=== PATIENT | male | born 1995 | race Caucasian/White ===

== ENCOUNTER 2022-12-30 19:08 | Inpatient (IN) | payer OTHER, SELFPAY ==
[2022-12-30 19:12] VITALS: BMI 28.9
--- NOTE | 2022-12-30 22:27 | PC.ADMIT ---
pt is a 27 year old male who is transgender (goes by they/them) who presented to [facility] ED with SI. pt has a PMH of inpatient hospitalizations, plantar faciitis, alopecia, titanium head piece, TBI, spinal injuries, mixed urinary incontinence, and a history of the foster system. during admission, pt was pleasant and signed all legals. pt says he uses his sensory toys to cope and he carries in his belongings. pt also has a leg brace at night for their plantar faciitits. pt also requested to wear his hat due to his alopecia and titanium plate. start treatment plan and promote safety.
[2022-12-30 23:20] VITALS: BP 134/75; PULSE 88; TEMP 36.4; O2SAT 99
[2022-12-31 08:25] VITALS: BP 129/83; PULSE 71; RESP 18; TEMP 36.1; O2SAT 99
[2022-12-31 08:57] LABS: Estimated Average Glucose 103 mg/dL; Hemoglobin A1c % 5.2 %
[2022-12-31 09:23] LABS: Alanine Aminotransferase 15 U/L (0-40); Alkaline Phosphatase 57 U/L (39-117); Anion Gap 11 (12-20); Aspartate Amino Transferase 16 U/L (5-37); Bilirubin Total 0.5 mg/dL (0.0-1.0); Blood Urea Nitrogen 10 mg/dL (9-16); Calcium 9.3 mg/dL (8.4-10.2); Carbon Dioxide 27 mmol/L (22-29); Chloride 106 mmol/L (96-108); Cholesterol 170 mg/dL; Creatinine Clr Calc Pharmacy 92.4; Estimated Glomerular Filt Rate > 60; Glucose Fasting 101 mg/dL (60-99); HDL Cholesterol 35 mg/dL; LDL Cholesterol Calculated 108 mg/dl; Potassium 4.2 mmol/L (3.3-5.1); Sodium 140 mmol/L (135-145); Total Protein 6.8 g/dL (6.5-8.0); Triglycerides 138 mg/dL
[2022-12-31 09:41] LABS: Thyroid Stimulating Hormone 1.24 uIU/mL (0.32-4.0)
[2022-12-31 09:47] LABS: Vitamin B12 495 pg/mL (200-900)
--- NOTE | 2022-12-31 10:19 | P.HPPS_ITS ---
HPI Date of Service: 12/31/22 Chief Complaint: SI Sources of Information: patient interviewed, chart reviewed and crisis/core team assessment reviewed HPI Subjective Notes: Domínguez Warning and Conditional Voluntary Narrative: Patient is a 27-year-old trans female with history of PTSD, depression, anorexia/bulimia, TBI (s/p titanium plate since 4 years old), alopecia who presents for dysregulated mood and unsafe thoughts, urges to self-harm in the face of relational strife. Patient said that overall she has been doing okay. Last week however she lost her therapist after 8 years since her therapist was not comfortable dealing with people or trans. Around the same time her partner was unable to fill prescription and decompensated into a manic episode; patient needed to call 911 which resulted in partners psychiatric admission and now her partner is angry at her. Patient reports she started having some suicidal thoughts, did not feel stable and urges to self-harm (from which she refrained) so she called [facility] and came to the emergency room. Patient says that now she is feeling back to her regular self and all SI(which she says was only passive) and self-harming urges have fully resolved. Patient has remained on current medic ation regimen which she says has been carefully crafted with her outpatient psychiatrist. Patient says she like to be on the unit and would benefit from groups however she does not think she needs to be on a locked unit and has strong support in the community. Patient denies drug or alcohol abuse other than cannabis; denies any history of manic type episodes; reports history of AH but only of background murmurs and only when she is stressed out. Ongoing PTSD symptoms Past Psychiatric History: Numerous psychiatric admissions; last 1 about 3 or 4 years ago Patient has outpatient psychiatrist with whom she has a good rapport Just quit her therapist after 8 years Patient has schizoaffective disorder listed in history; patient says that this was a misnomer Patient wears a baseball-style hat at all times including during sleep due to alopecia and scar down the center of her head; reports she has worn a hat daily and at all times since childhood Medical Evaluation Reviewed: Hospitalist Stella Pending [facility] Medical History (Updated 12/31/22 @ 15:32 by Ruslan Prajapati MD) Chronic pain of right knee Depression with anxiety Gender dysphoria GERD (gastroesophageal reflux disease) Plantar fasciitis of left foot PTSD (post-traumatic stress disorder) TBI (traumatic brain injury) Transgender person on hormone therapy Family History: Unclear Social History: Lives with partner Biological mother Patient close with foster mother Substance History: Cannabis Trauma History: Patient reports extensive but details were not discussed; patient grew up in foster care Diagnostics Vital Signs (24Hr): Vital Signs - 24 hr 12/30/22 23:20 12/31/22 08:25 Temperature 97.5 F 96.9 F Pulse Rate 88 71 Respiratory Rate 18 Blood Pressure 134/75 129/83 Pulse Oximetry 99 99 Oxygen Delivery Method Room Air Room Air BMI result Body Mass Index 28.9 Labs 12/31/22 08:01 Labs: Laboratory Results - last 48 hr 12/31/22 12/31/22 12/31/22 08:01 08:01 08:01 Sodium 140 Potassium 4.2 Chloride 106 Carbon Dioxide 27 Anion Gap 11 L BUN 10 Creatinine 1.26 Estim Creat Clear Calc 92.4 Estimated GFR > 60 Fasting Glucose 101 H Estimat Average Glucose 103 Hemoglobin A1c % 5.2 Calcium 9.3 Total Bilirubin 0.5 AST 16 ALT 15 Alkaline Phosphatase 57 Total Protein 6.8 Albumin 4.0 Triglycerides 138 Cholesterol 170 LDL Cholesterol, Calc 108 HDL Cholesterol 35 Vitamin B12 495 Folate 9.0 TSH 1.24 Meds/Allergies Meds Home Medications Medication Instructions Recorded Confirmed Type acetaminophen 500 mg tablet 500 mg PO Q6H PRN headache 12/30/22 12/30/22 History desmopressin 0.2 mg tablet 0.6 mg PO BEDTIME 12/30/22 12/30/22 History diphenhydramine HCl 12.5 mg/5 mL 12.5 mg PO BEDTIME 12/30/22 12/30/22 History oral elixir docusate sodium 100 mg capsule 100 mg PO BID 12/30/22 12/30/22 History (DOK) docusate sodium 100 mg capsule 100 mg PO BID 12/30/22 12/30/22 History (DOK) estradiol 1 mg tablet 2 mg PO BID 12/30/22 12/30/22 History gabapentin 100 mg capsule 100 mg PO BID 12/30/22 12/30/22 History gabapentin 400 mg capsule 400 mg PO BEDTIME 12/30/22 12/30/22 History ibuprofen 600 mg tablet 600 mg PO Q6H PRN leg and headache 12/30/22 12/30/22 Hi story lorazepam 1 mg tablet 1 mg PO BID PRN Anxiety 12/30/22 12/30/22 History melatonin 5 mg tablet 5 mg PO BEDTIME PRN Sleep 12/30/22 12/30/22 History multivitamin 1 tab PO DAILY 12/30/22 12/31/22 History oxybutynin chloride 5 mg 5 mg PO DAILY 12/30/22 12/30/22 History tablet,extended release 24 hr pantoprazole 40 mg tablet,delayed 40 mg PO DAILY 12/30/22 12/30/22 History release perphenazine 16 mg tablet 16 mg PO BID 12/30/22 12/30/22 History spironolactone 50 mg tablet 50 mg PO BID 12/30/22 12/30/22 History Allergies Allergies Allergy/AdvReac Type Severity Reaction Status Date / Time aripiprazole [From Abilify] Allergy Severe Unknown Verified 12/30/22 19:21 crab Allergy Severe Anaphylaxis Verified 12/30/22 19:21 haloperidol [From Haldol] Allergy Severe Unknown Verified 12/30/22 19:21 paliperidone [From Invega] Allergy Severe Unknown Verified 12/30/22 19:21 almond Allergy Intermediate Rash Verified 12/30/22 19:21 prazosin Allergy Intermediate Rash Verified 12/30/22 19:21 walnut Allergy Intermediate Rash Verified 12/30/22 19:21 Mental Status Exam Mental Status Exam Narrative: Pt is alert and oriented; behavior is cooperative, friendly and calm; patient is not in distress; dressed in casual attire with unkempt hair and perez, wearing a hat; mood is described as ok and affect congruent; eye contact appropriate; Speech is normal rate, volume and prosody and not pressured; no psychomotor agitation/retardation present; thought process is organized and goal directed; Thought content is on tx; otherwise pertinent to relevant topics and without any delusional content, paranoid ideations or grandiosity; denies any SI/HI. There is no evidence of perceptual disturbance. Patients insight and judgment appear intact. Assessment & Plan Assessment & Plan (1) Adjustment disorder with disturbance of emotion: Status: Acute Code(s): F43.29 - Adjustment disorder with other symptoms (2) PTSD (post-traumatic stress disorder): Status: Acute Code(s): F43.10 - Post-traumatic stress disorder, unspecified (3) Gender dysphoria: Status: Acute Code(s): F64.9 - Gender identity disorder, unspecified (4) TBI (traumatic brain injury): Status: Acute Code(s): S06.9XAA - Unspecified intracranial injury with loss of consciousness status unknown, initial encounter Plan Patient is a 27-year-old trans female with history of PTSD, depression, anorexia/bulimia, TBI (s/p titanium plate since 4 years old), alopecia who presents for dysregulated mood and unsafe thoughts, urges to self-harm in the face of relational strife. Patient said that overall she has been doing okay. Last week however she lost her therapist after 8 years since her therapist was n ot comfortable dealing with people or trans. Around the same time her partner was unable to fill prescription and decompensated into a manic episode; patient needed to call 911 which resulted in partners psychiatric admission and now her partner is angry at her. Patient reports she started having some suicidal thoughts, did not feel stable and urges to self-harm (from which she refrained) so she called [facility] and came to the emergency room. Patient says that now she is feeling back to her regular self and all SI(which she says was only passive) and self-harming urges have fully resolved. Patient has remained on current medication regimen which she says has been carefully crafted with her outpatient psychiatrist. Patient says she like to be on the unit and would benefit from groups however she does not think she needs to be on a locked unit and has strong support in the community. Patient denies drug or alcohol abuse other than cannabis; denies any history of manic type episodes; reports history of AH but only of background murmurs and only when she is stressed out. Ongoing PTSD symptoms -Patient wears a baseball-style hat at all times including during sleep due to alopecia and scar down the center of her head; reports she has worn a hat daily and at all times since childhood. They are currently exist a no hat policy on the unit. Patient says that while she would benefit from groups, if she was not allowed to wear hat she would stay in her room all the time until discharge (patient has already put in a 3 day notice). She said this is not a protest but that she has not been in public, in the presence of other people without a had on for her entire life and just the thought of it is making her tremble. She says she would prefer to discharge now if possible. Patient maintains that she is without any SI at all and all self harming urges have dissipated. She feels safe and stable for discharge. Impression/plan: Patient presents with adjustment disorder in the face of psychosocial stressors; all symptoms have fully resolved and patient is back to baseline. She has good support in the community with her psychiatrist with whom she has a good rapport. She returns to her own home. Patient has not been hospitalized for 3-4 years and despite feeling dysregulated these past few days, did not self-harm at all but instead reached out for help. While patient may benefit from being on the unit, she is not in imminent risk for harm to self or others. She has placed a 3 day notice and would like to discharge if she is not allowed to wear hat on the unit, feeling she will be much too anxious and self-conscious to focus on any groups. [employer] Sergeant social worker health services both agree that patient is safe for discharge. -otherwise continue home medication regimen Patient educated on: diagnosis, medication risk/benefits and therapeutic strategies Informed Consent: understands Reason for continued inpatient stay Substantial Risk for: stable for discharge Statement Statement: I have reviewed the history and physical and performed a pertinent examination on my patient. No changes have occurred unless specified. If the History and Physical was not performed prior to admission, the Hospitalist's service will be consulted for completing the admission physical. Time Spent With Patient Time: Total time managing care of this patient today ____ minutes.
--- NOTE | 2022-12-31 12:08 | P.CONHOSP_ITS ---
History of Present Illness Data of Consult Service Date: 12/31/22 Requesting physician: Ruslan Prajapati Primary Care Provider: Unknown Physician HPI Reason for consult: medical management 27 year old assigned male at transitioning from male to female on estradiol and spironolactone with history of TBI, cranial surgery as a child due to suture fusion, history disordered eating, chronic right knee pain with meniscal tear, plantar fasciitis left foot, mixed urinary incontinence, GERD, VCÍTOR/depression, PTSD, and alopecia admitted to psychiatry from [facility] with consult placed to hospitalist service for medical H&P. The patient reports history multiple TBI and as a result has short term memory loss and occassional headaches. Pt states uses brace for the plantar fasciitis but is unsure if the unit allows for this. Also reports always wearing a hat due to insecurities surr ounding the alopecia. Regular MJ user, no illicit substances. No etoh use or cigarettes. Review of Systems Review of Systems: General: No fevers, malaise, unintentional weight loss HEENT: No blurred vision, diplopia. No sore throat, nasal congestion, rhinorrhea, sinus pain, ear pain Cardiovascular: No chest pain, palpitations, or leg edema Respiratory: No shortness of breath, wheezing, cough GI: No abdominal pain, nausea, vomiting, diarrhea, constipation, melena, hematochezia : +urinary incontinence. No dysuria, hematuria, increased urinary frequency, decreased urinary output MSK: No myalgia, back pain. +right knee pain, +left foot pain Neuro: +memory impairment. No headaches, weakness, paresthesias Skin: No rashes or lesions [facility] Medical History Chronic pain of right knee Depression with anxiety GERD (gastroesophageal reflux disease) Plantar fasciitis of left foot PTSD (post-traumatic stress disorder) Transgender person on hormone therapy Social History Household Members: Significant Other Housing: Apartment Do you presently have visiting nurse or other home services: No Patient Tobacco Use Status: Never used Tobacco Use of substances other than those prescribed or required for medical reasons: Yes Substance Use Type: Marijuana Substance Use Frequency: Occasionally Last Used Substance: Just Prior to Admission Currently Displaying Signs/Symptoms of Drug Intoxication Withdrawal: No Any prior treatment program specific to substance use: No Have you been hit, kicked, punched, or otherwise hurt by someone within the past year? If so, by whom?: No Do you feel safe in your current relationship?: Yes Is there a partner from a previous relationship who is making you feel unsafe now?: No Are you made to feel afraid or neglected: No Advance Directives: No Advance Directives Information Provided: Yes Do you have thoughts of harming others: None Do you have a plan to hurt others: No Plan Recently lost weight without trying: No How much weight loss: Not applicable Eating poorly because of decreased appetite: Yes Nutrition screen score: 1 Nutrition Risks: No Nutritional Risk and Dental problems Poor oral hygiene: No Meds Allergies Allergy/AdvReac Type Severity Reaction Status Date / Time aripiprazole [From Abilify] Allergy Severe Unknown Verified 12/30/22 19:21 crab Allergy Severe Anaphylaxis Verified 12/30/22 19:21 haloperidol [From Haldol] Allergy Severe Unknown Verified 12/30/22 19:21 paliperidone [From Invega] Allergy Severe Unknown Verified 12/30/22 19:21 almond Allergy Intermediate Rash Verified 12/30/22 19:21 prazosin Allergy Intermediate Rash Verified 12/30/22 19:21 walnut Allergy Intermediate Rash Verified 12/30/22 19:21 Active Medications: Current Medications Acetaminophen (Acetaminophen 325 Mg Tablet) 650 mg PO Q6H PRN PRN Reason: Headache/Pain Mild Scale (1-3) Al Hydroxide/Mg Hydroxide (Magnesium Hydrox/Alum Hydrox 30 Ml Oral.Susp) 30 ml PO Q6H PRN PRN Reason: Heartburn/Nausea Desmopressin Acetate (Desmopressin Acetate 0.2 Mg Tablet) 0.6 mg PO BEDTIME DANNI Diphenhydramine HCl (Diphenhydramine Hcl 12.5 Mg/5 Ml Liquid) 12.5 mg PO BEDTIME DANNI Docusate Sodium (Docusate Sodium 100 Mg Capsule) 100 mg PO BID PRN PRN Reason: constipation Estradiol (Estradiol 0.5 Mg Tablet) 2 mg PO BID DANNI Gabapentin (Gabapentin 400 Mg Capsule) 400 mg PO BEDTIME DANNI Gabapentin (Gabapentin 100 Mg Capsule) 100 mg PO BID DANNI Hydroxyzine HCl (Hydroxyzine Hcl 25 Mg Tablet) 25 mg PO Q6H PRN PRN Reason: Anxiety Ibuprofen (Ibuprofen 600 Mg Tablet) 600 mg PO Q6H PRN PRN Reason: leg and headache Lorazepam (Lorazepam 1 Mg Tablet) 1 mg PO BID PRN PRN Reason: Anxiety Magnesium Hydroxide (Milk Of Magnesia 30 Ml Oral.Susp) 30 ml PO DAILY PRN PRN Reason: Constipation Melatonin (Melatonin 3 Mg Tablet) 6 mg PO BEDTIME PRN PRN Reason: Sleep Nicotine (Nicotine 14 Mg Patch.Td24) 14 mg TRANSDERMA DAILY PRN PRN Reason: nicotine craving Omeprazole (Omeprazole 20 Mg Capsule.Dr) 20 mg PO DAILY@0630 DANNI Oxybutynin Chloride (Oxybutynin Chloride Er 5 Mg Tab.Er.24) 5 mg PO DAILY DANNI Perphenazine (Perphenazine 8 Mg Tablet) 16 mg PO BID DANNI Spironolactone (Spironolactone 25 Mg Tablet) 50 mg PO BID DANNI; Protocol Trazodone HCl (Trazodone Hcl 50 Mg Tablet) 50 mg PO BEDTIME PRN PRN Reason: Insomnia Home Medications Medication Instructions Recorded Confirmed Last Taken Type acetaminophen 500 mg tablet 500 mg PO Q6H PRN headache 12/30/22 12/30/22 Unknown History desmopressin 0.2 mg tablet 0.6 mg PO BEDTIME 12/30/22 12/30/22 Unknown History diphenhydramine HCl 12.5 mg/5 mL 12.5 mg PO BEDTIME 12/30/22 12/30/22 Unknown History oral elixir docusate sodium 100 mg capsule 100 mg PO BID 12/30/22 12/30/22 Unknown History (DOK) docusate sodium 100 mg capsule 100 mg PO BID 12/30/22 12/30/22 Unknown History (DOK) estradiol 1 mg tablet 2 mg PO BID 12/30/22 12/30/22 Unknown History gabapentin 100 mg capsule 100 mg PO BID 12/30/22 12/30/22 Unknown History gabapentin 400 mg capsule 400 mg PO BEDTIME 12/30/22 12/30/22 Unknown History ibuprofen 600 mg tablet 600 mg PO Q6H PRN leg and headache 12/30/22 12/30/22 Unknown History lorazepam 1 mg tablet 1 mg PO BID PRN Anxiety 12/30/22 12/30/22 Unknown History melatonin 5 mg tablet 5 mg PO BEDTIME PRN Sleep 12/30/22 12/30/22 Unknown History multivitamin 1 tab PO DAILY 12/30/22 12/31/22 Unknown History oxybutynin chloride 5 mg 5 mg PO DAILY 12/30/22 12/30/22 Unknown History tablet,extended release 24 hr pantoprazole 40 mg tablet,delayed 40 mg PO DAILY 12/30/22 12/30/22 Unknown History release perphenazine 16 mg tablet 16 mg PO BID 12/30/22 12/30/22 Unknown History spironolactone 50 mg tablet 50 mg PO BID 12/30/22 12/30/22 Unknown History Physical Exam Vital Signs and Narrative: Vital Signs: Last Vital Signs Temp 96.9 F 12/31/22 08:25 Pulse 71 12/31/22 08:25 Resp 18 12/31/22 08:25 BP 129/83 12/31/22 08:25 Pulse Ox 99 12/31/22 08:25 O2 Del Method Room Air 12/31/22 08:25 BMI result Body Mass Index 28.9 Constitutional - Awake and Alert, No apparent distress Eyes - PERRLA, EOMI Cardiovascular - S1S2, RRR, No edema Respiratory - Normal lung expansion, Normal respiratory effort, No respiratory distress, CTA bilaterally Gastrointestinal - NT / ND; +BS; No rebound or guarding Extremities - no calf tenderness bilaterally, no swelling Musculoskeletal - Normal inspection, normal ROM Skin - Warm/Dry Neurological - Alert & oriented x3, CN II-XII in tact, 5/5 strength BUE and BLE Results Labs 12/31/22 08:01 Labs: Laboratory Results - last 24 hr 12/31/22 12/31/22 12/31/22 08:01 08:01 08:01 Anion Gap 11 L Estim Creat Clear Calc 92.4 Estimated GFR > 60 Fasting Glucose 101 H Estimat Average Glucose 103 Hemoglobin A1c % 5.2 Calcium 9.3 Total Bilirubin 0.5 AST 16 ALT 15 Alkaline Phosphatase 57 Total Protein 6.8 Albumin 4.0 Triglycerides 138 Cholesterol 170 LDL Cholesterol, Calc 108 HDL Cholesterol 35 Vitamin B12 495 Folate 9.0 TSH 1.24 Assessment and Plan (1) Routine medical exam: Status: Acute Plan 27 year old assigned male at transitioning from male to female on estradi ol and spironolactone with history of TBI, cranial surgery as a child due to suture fusion, history disordered eating, chronic right knee pain with meniscal tear, plantar fasciitis left foot, mixed urinary incontinence, GERD, VÍCTOR/depression, PTSD, and alopecia admitted to psychiatry from [facility] with consult placed to hospitalist service for medical H&P. #Mood disorder/ptsd -plan per psychiatry #Transgender female on hormone therapy -Continue estradiol and spironolactone -monitor blood pressures #Mixed urinary incontinence -continue oxybutynin/desmopressin #Plantar fasciitis left foot -pain management prn -if permitted, allow brace for arch/heel support -recommend supportive footwear #Chronic knee pain -tylenol, topical analgesics #GERD -continue ppi #Alopecia -hat wearing at discretion of psychiatry -continue spironolactone Thank you for allowing me to participate in this consult. Signing off at this time. Please do not hesitate to call for further questions. Time Spent With Patient Time: Total time managing care of this patient today ____ minutes.
[2022-12-31] MEDS: Gabapentin 100 MG CAPSULE PO (12:12)
[2022-12-31] MEDS: oxyBUTYnin chloride ER 5 MG TAB.ER.24 PO (12:13)
[2022-12-31] MEDS: Spironolactone 25 MG TABLET 50 MG PO (12:13)
[2022-12-31] MEDS: Perphenazine 8 MG TABLET 16 MG PO (12:14)
[2022-12-31] MEDS: LORazepam 1 MG TABLET PO (12:15)
[2022-12-31] MEDS: hydrOXYzine HCL 25 MG TABLET PO (14:46)
--- NOTE | 2022-12-31 16:26 | P.DS_ITS ---
DS: Providers Provider Date of Service: 12/31/22 Date of admission: 12/30/22 19:08 Date of discharge: 12/31/22 Primary care physician: Unknown Physician Attending physician on admission: Ruslan Prajapati Consults: 12/30/22 19:41 Consult to Hospitalist Routine Comment: Consulting Provider: Hospitalist Reason For Exam: medical H&P Attending physician on discharge: Ruslan Prajapati DS: Diagnosis Discharge Diagnosis (1) Adjustment disorder with disturbance of emotion: Status: Acute (2) PTSD (post-traumatic stress disorder): Status: Acute (3) Gender dysphoria: Status: Acute (4) TBI (traumatic brain injury): Status: Acute DS: Medications Discharge Medications Home Medications: Home Medications Medication Instructions Recorded Confirmed acetaminophen 500 mg tablet 500 mg PO Q6H PRN headache 12/30/22 12/30/22 desmopressin 0.2 mg tablet 0.6 mg PO BEDTIME 12/30/22 12/30/22 diphenhydramine HCl 12.5 mg/5 mL 12.5 mg PO BEDTIME 12/30/22 12/30/22 oral elixir estradiol 1 mg tablet 2 mg PO BID 12/30/22 12/30/22 gabapentin 100 mg capsule 100 mg PO BID 12/30/22 12/30/22 gabapentin 400 mg capsule 400 mg PO BEDTIME 12/30/22 12/30/22 ibuprofen 600 mg tablet 600 mg PO Q6H PRN leg and headache 12/30/22 12/30/22 lorazepam 1 mg tablet 1 mg PO BID PRN Anxiety 12/30/22 12/30/22 melatonin 5 mg tablet 5 mg PO BEDTIME PRN Sleep 12/30/22 12/30/22 oxybutynin chloride 5 mg 5 mg PO DAILY 12/30/22 12/30/22 tablet,extended release 24 hr pantoprazole 40 mg tablet,delayed 40 mg PO DAILY 12/30/22 12/30/22 release perphenazine 16 mg tablet 16 mg PO BID 12/30/22 12/30/22 spironolactone 50 mg tablet 50 mg PO BID 12/30/22 12/30/22 Previous Rx's Medication Instructions Recorded docusate sodium 100 mg capsule 100 mg PO BID PRN constipation #0 12/31/22 caps Mental Status Exam Mental Status Exam Narrative: Pt is alert and oriented; behavior is cooperative, friendly and calm; patient is not in distress; dressed in casual attire with unkempt hair and perez, wearing a hat; mood is described as ok and affect congruent; eye contact appropriate; Speech is normal rate, volume and prosody and not pressured; no psychomotor agitation/retardation present; thought process is organized and goal directed; Thought content is on tx; otherwise pertinent to relevant topics and without any delusional content, paranoid ideations or grandiosity; denies any SI/HI. There is no evidence of perceptual disturbance. Patients insight and judgment appear intact. Data Data Completed and Pending Completed studies during hospitalization [Text1]: 12/31/22 12/31/22 12/31/22 08:01 08:01 08:01 Sodium 140 Potassium 4.2 Chloride 106 Carbon Dioxide 27 Anion Gap 11 L BUN 10 Creatinine 1.26 Estim Creat Clear Calc 92.4 Estimated GFR > 60 Fasting Glucose 101 H Estimat Average Glucose 103 Hemoglobin A1c % 5.2 Calcium 9.3 Total Bilirubin 0.5 AST 16 ALT 15 Alkaline Phosphatase 57 Total Protein 6.8 Albumin 4.0 Triglycerides 138 Cholesterol 170 LDL Cholesterol, Calc 108 HDL Cholesterol 35 Vitamin B12 495 Folate 9.0 TSH 1.24 DS: Summary Hospital Course Hospital Course: Patient is a 27-year-old trans female with history of PTSD, depression, anorexia/bulimia, TBI (s/p titanium plate since 4 years old), alopecia who presents for dysregulated mood and unsafe thoughts, urges to self-harm in the face of relational strife.? Patient said that overall she has been doing okay.? Last week however she lost her therapist after 8 years since her therapist was not comfortable dealing with people or trans.? Around the same time her partner was unable to fill prescription and decompensated into a manic episode; patient needed to call 911 which resulted in partners psychiatric admission and now her partner is angry at her.? Patient reports she started having some suicidal thoughts, did not feel stable and urges to self-harm (from which she refrained) so she called [facility] and came to the emergency room.? Patient says that now she is feeling back to her regular self and all SI(which she says was only passive) and self-harming urges have fully resolved.? Patient has remained on current medication regimen which she says has been carefully crafted with her outpatient psychiatrist.? Patient says she like to be on the unit and would benefit from groups however she does not think she needs to be on a locked unit and has strong support in the community.? Patient denies drug or alcohol abuse other than cannabis; denies any history of manic type episodes; reports history of AH but only of background murmurs and only when she is stressed out.? Ongoing PTSD symptoms Home meds continued; no changes made to med regimen -Patient wears a baseball-style hat at all times including during sleep due to alopecia and scar down the center of her head; reports she has worn a hat daily and at all times since childhood.? They are currently exist a no hat policy on the unit.? Patient says that while she would benefit from groups, if she was not allowed to wear hat she would stay in her room all the time until discharge (patient has already put in a 3 day notice).? She said this is not a protest but that she has not been in public, in the presence of other people without a had on for her entire life and just the thought of it is making her tremble.? She says she would prefer to discharge now if possible.? Patient maintains that she is without any SI at all and all self harming urges have dissipated.? She feels safe and stable for discharge. Impression/plan: Patient presents with adjustment disorder in the face of psychosocial stressors; all symptoms have fully resolved and patient is back to baseline.? She has good support in the community with her psychiatrist with whom she has a good rapport.? She returns to her own home.? Patient has not been hospitalized for 3- 4 years and despite feeling dysregulated these past few days, did not self-harm at all but instead reached out for help.? While patient may benefit from being on the unit, she is not in imminent risk for harm to self or others.? She has placed a 3 day notice and would like to discharge if she is not allowed to wear hat on the unit, feeling she will be much too anxious and self-conscious to focus on any groups.? Invoice Control Clerk social media sr strategy manager both agree that patient is safe for discharge. Time spent discussing smoking cessation with patient: 3 to 10 minutes Status at Discharge Functional status at discharge: independent ambulation Overall status at discharge: patient is back to baseline Time Spent with Patient Time attestation: Total time managing care of this patient today ____ minutes. Time spent: Greater than 30 minutes Discharge Plan Discharge Anticipated Discharge Date/Time: 12/31/22 Patient Disposition: Home, Self-Care Discharge Diagnosis: adjustment disorder with disturbance of emotion, in full remission Referrals: Pankaj Bradford [Other] - 1 Week Discharge Medications: New docusate sodium 100 mg Capsule 100 mg PO BID PRN (Reason: constipation) Qty: 0 0RF Continued gabapentin 400 mg Capsule 400 mg PO BEDTIME melatonin 5 mg Tablet 5 mg PO BEDTIME PRN (Reason: Sleep) desmopressin 0.2 mg Tablet 0.6 mg PO BEDTIME acetaminophen 500 mg Tablet 500 mg PO Q6H PRN (Reason: headache) estradiol 1 mg Tablet 2 mg PO BID pantoprazole 40 mg Tablet,Delayed Release (Dr/Ec) 40 mg PO DAILY diphenhydramine HCl 12.5 mg/5 mL Elixir 12.5 mg PO BEDTIME oxybutynin chloride 5 mg Tablet Extended Release 24hr 5 mg PO DAILY gabapentin 100 mg Capsule 100 mg PO BID lorazepam 1 mg Tablet 1 mg PO BID PRN (Reason: Anxiety) ibuprofen 600 mg Tablet 600 mg PO Q6H PRN (Reason: leg and headache ) spironolactone 50 mg Tablet 50 mg PO BID perphenazine 16 mg Tablet 16 mg PO BID Discontinued docusate sodium [DOK] 100 mg Capsule 100 mg PO BID docusate sodium [DOK] 100 mg Capsule 100 mg PO BID Multivitamin W/Vitamin C Tablet,Chewable 1 tab PO DAILY Discharge Orders: Discharge Order (Routine); Ordered 12/31/22 Ordered By: Ruslan Prajapati Diet: Regular diet Activity on Discharge: As tolerated Stand Alone Forms: Patient Portal Discharge page, Community Support Care Plan Goals: Maintain mood and safe behaviors Take medications as prescribed Practice coping skills Continue with outpatient providers and reach out to them as needed Health Concerns: Mood stability and behaviors Plan of Treatment: Follow up with your PCP, psychiatric provider and other outpatient providers regarding above concerns Take medications as prescribed Assessment: Risk assessment at time of discharge:? Patient was interviewed prior to discharge and found to be fully oriented and without any SI or HI. Patient has insight and demonstrates good judgment in terms of wanting to pursue treatment. Patient is not in imminent risk of harm to self or others and has a safety plan that includes presenting to the closest ER or calling 911 if feeling unsafe.? Patient has been observed closely by nursing and unit staff throughout admission; patient has not engaged in any behaviors that suggest dangerousness to self or others and has demonstrated appropriate behaviors and impulse control Discharge Date/Time: 12/31/22 17:14
== END 2022-12-31 17:14 | disposition home or self-care (01) | DRG 755 ==
PROVIDERS: Social Worker; Admitting Provider Psychiatry & Neurology Psychiatry; Visit Provider Psychiatry & Neurology Psychiatry
DX: F43.29 Adjustment disorder with other symptoms (principal); R45.851 Suicidal ideations; F43.10 Post-traumatic stress disorder, unspecified; L65.9 Nonscarring hair loss, unspecified; F64.0 Transsexualism; N39.46 Mixed incontinence; G89.29 Other chronic pain; M72.2 Plantar fascial fibromatosis; Z87.820 Personal history of traumatic brain injury; Z79.899 Other long term (current) drug therapy
CPT/HCPCS: 36415; 80053; 80061; 82607; 82746; 83036; 84443

== ENCOUNTER → 2022-12-30 19:08 | Outpatient (BNV) | payer MEDICAID, SELFPAY | PROVIDERS: Admitting Provider Psychiatry & Neurology Psychiatry; Visit Provider Physician Assistant | DX: Z00.00 Encounter for general adult medical examination without abnormal findings (principal) | CPT/HCPCS: 99222 ==

== ENCOUNTER → 2022-12-30 19:08 | Outpatient (BNV) | payer OTHER, SELFPAY | PROVIDERS: Admitting Provider Psychiatry & Neurology Psychiatry; Visit Provider Psychiatry & Neurology Psychiatry | DX: F43.29 Adjustment disorder with other symptoms (principal); F43.10 Post-traumatic stress disorder, unspecified; F64.9 Gender identity disorder, unspecified; S06.9XAA Unspecified intracranial injury with loss of consciousness status unknown, initial encounter | CPT/HCPCS: 99232; 99499 ==